=== PATIENT | female | born 1960 | race African-American/Black ===

== ENCOUNTER 2023-03-30 10:08 | Outpatient (CLI) | payer MEDICARE, SELFPAY ==
--- NOTE | ~2023-03-30 | US_ITS ---
EXAMINATION: US pelvic complete w TV DATE: 03/30/2023 11:24 INDICATION: Benign neoplasm of connective tissue. Comparison:No prior studies for comparison. TECHNIQUE: Multiple transabdominal and endovaginal sonographic images of the pelvis performed. FINDINGS: The uterus measures 8.4 x 3.9 x 5.2 cm. There are uterine calcifications, possibly due to u nderlying fibroid changes.. The endometrial complex measures 8 mm. The ovaries are not visualized. There is no free fluid in the pelvis. There are no abnormal masses seen on either side. IMPRESSION: 1. Thickened endomtrial complex. The differential diagnosis includes endometrial hyperplasia, polyp a nd carcinoma. Biopsy is recommended.. Reviewed, dictated and finalized at location B. IMPRESSION: 1. Thickened endomtrial complex. The differential diagnosis includes endometria l hyperplasia, polyp and carcinoma. Biopsy is recommended..
== END 2023-03-30 10:09 | disposition home or self-care (01) ==
PROVIDERS: Visit Provider Registered Nurse
DX: D21.9 Benign neoplasm of connective and other soft tissue, unspecified (principal)
CPT/HCPCS: 76830; 76856

== ENCOUNTER 2023-05-20 00:42 | Day surgery (SDC) | payer MEDICARE, SELFPAY ==
--- NOTE | 2023-05-13 15:40 | SUR.PREOP ---
Report to the Outpatient Waiting Room, entrance under the green pavilion located off [facility], at time 0730 on date 05/20/23. Planned Procedure Time: 0930. Time changes happen often and if your time is changed the preop area will call you the afternoon before. - You and your visitor will be asked to self-screen and do not enter if you have any COVID symptoms. - A mask is optional within the hospital at this time. Patients may have clear liquids (water, carbonated beverages, clear teas, apple juice) until 3 hours prior to surgery with a maximum of 20 ounces. - NO CLEAR LIQUIDS AFTER 0630 - No food from midnight until time of surgery - Infants may have breast milk until 4 hours before surgery, infant formula 6 hours prior to surgery. - Children will be allowed to drink immediately following surgery. If applicable, please bring a bottle or sippy cup to assist with drinking. Juice, water, soda, and popsicles are readily available. For infants on formula, please bring formula the day of surgery. Pacifiers are allowed. Take the following medications with a SIP of water the morning of surgery: LABETALOL, LETROZOLE, PREDNISONE, TACROLIMUS DO NOT STOP ANY OF YOUR OTHER PRESCRIPTION MEDICATIONS PRIOR TO SURGERY ?EXCEPT THE FOLLOWING Medications to discontinue per physician STOP VITAMINS 05/17/23, INSTRUCTED TO CALL DR GIL IN REGARDS TO STOPPING ASPIRIN Please no make-up, nail estonian, hairspray, perfume, deodorant, or body powder the day of surgery. No jewelry (including any body piercings) or valuables the day of surgery, leave them at home. Please take a shower or bath the night before, or the morning of, surgery with an antibacterial soap. Wear comfortable, loose fitting clothing. Children are encouraged to wear pajamas. - Jewelry must be removed prior to entering the operating room. Rings and piercings that are not removed may be cut off. - The hospital will not accept responsibility for valuables. - Please leave all valuables, including medications, at home the day of surgery. If you are going home after surgery, a licensed hook up driver must drive you home. - NO public transportation without another adult if you receive anesthesia. - We recommend that an adult stay with you for 24 hours following discharge. - We also recommend that you do not drive, make important decision, drink alcoholic beverages, or take any drugs that were not prescribed by your health care provider for at least 24 hours after your discharge time. For Pediatric surgeries, we recommend two adults accompany the child home. Follow any additional instructions given to you from your surgeon. If you or anyone in your household have experienced Covid symptoms in the past week, please notify your surgeon or the nurse liaison at the phone number below for possible testing. Telephone instructions given to SADAF HILARIO and asked if any additional questions and then verbalized understanding. INSTRUCTED PATIENT TO FAX BMP RESULTS TO [phone] Patient advised to call surgeon office or pre surgery nurse liaison [phone] if any additional questions.
[2023-05-13 16:01] VITALS: BMI 38.4
--- NOTE | 2023-05-19 12:43 | PM.IMHP ---
H&P: HPI History of Present Illness Date/Time: 05/19/23 12:43 Chief Complaint: Abnormal thickened endometrial stripe on a postmenopausal patient Narrative: Patient is a 62-year-old female with history of breast cancer on letrozole with abnormal ultrasound finding of thickened endometrial stripe of 8 mm. It was recommended for endometrial sampling to rule out abnormal cells and she opted for D and C hysteroscopy and removal of any abnormal lesion if present. Review of Systems Review of Systems: All systems reviewed & are unremarkable except as noted in HPI and below Cardiovascular: Cardiovascular: Reports no additional cardiovascular complaints, Denies chest pain and Denies dyspnea Respiratory: Respiratory: Reports no additional respiratory complaints and Denies dyspnea Gastrointestinal: Gastrointestinal: Reports abdominal pain, Denies change in bowel habits, Denies diarrhea, Denies nausea and Denies vomiting Genitourinary: Genitourinary: Reports pelvic pain Musculoskeletal: Musculoskeletal: Reports back pain Integumentary/Breasts: Skin/Breast: Reports system reviewed and no additional complaints, except as docu Neurologic: Reports system reviewed and no additional complaints, except as documented PMFSH Past Medical History Medical History delivery delivered Hyperlipidemia with target LDL less than 100 Hypertension Obesity Type 2 diabetes mellitus with hyperglycemia, with long-term current use of insulin Uterine fibroid Surgical History Surgical History H/O breast surgery H/O tubal ligation Kidney transplant recipient S/P dilation and curettage Family History Family History Father Family history of arthritis Family history of diabetes mellitus in first degree relative Mother Family history of heart disease in male family member before age 55 Social History Social History Smoking status: Never smoker Alcohol intake: current Substance use: never Lack of Transportation: YES Lack of Food: Never True Current Housing: Decline to Answer Concerned About Future Housing: Decline to Answer Difficulty Paying Gas/Electric Bills: Decline to Answer Difficulty Paying for Meds: Decline to Answer Currently Unemployed: Decline to Answer Education: Decline to Answer Difficulty w/ Childcare or Family Care: Decline to Answer Living arrangements: alone Gender identity (if verbalized by the patient): Female Sexual Orientation (if Verbalized by the Patient): Straight or Heterosexual Spiritual care concerns: No Meds Home Medications and Allergies Home Medications Medication Instructions Recorded Confirmed Type aspirin 81 mg tablet,delayed 81 mg PO DAILY 10/10/19 05/20/23 History release (Adult Aspirin Regimen) prednisone 5 mg tablet 5 mg PO DAILY 10/10/19 05/20/23 History cholecalciferol (vitamin D3) 50 2,000 unit PO DAILY 04/18/20 05/20/23 History mcg (2,000 unit) capsule pen needle, diabetic 31 gauge x #400 ea 04/18/20 05/04/23 Rx 3/16 (BD Ultra-Fine Mini Pen Needle) tacrolimus 1 mg tablet,extended 4 mg PO QAM 04/18/20 05/20/23 History release 24 hr ([facility]us XR) blood-glucose meter (OneTouch #1 ea 07/22/20 05/04/23 Rx Ultra2 Meter kit) labetalol 200 mg tablet 200 mg PO Q12H 10/15/20 05/20/23 History blood pressure kit-extra large #1 ea 01/21/21 05/04/23 Rx multivitamin 1 tablet PO DAILY 05/18/21 05/20/23 History losartan 50 mg-hydrochlorothiazide 1 tablet PO DAILY 06/17/21 05/20/23 History 12.5 mg tablet blood sugar diagnostic #400 ea 08/13/21 05/04/23 Rx lancets 33 gauge (OneTouch Delica #400 ea 08/13/21 05/04/23 Rx Lancets) insulin glargine 100 unit/mL (3 45 unit (0.45 mL) subcut DAILY 90 08/31/21 05/20/23 Rx mL) subcutaneous
[2023-05-20 08:54] VITALS: BP 182/69; PULSE 77; RESP 20; TEMP 36.4; O2SAT 98
--- NOTE | 2023-05-20 09:11 | WPDANESEPPF ---
Anes - Initial Pre Proc Eval Procedure: Operation Date: 05/20/23 10:30 Proposed Procedures p Hysteroscopy Dilation and Curettage, Removal of any Endometrial Lesion, If necessary - Robb Cantu MD Date/Time: 05/20/23 09:11 Surgeon: Robb Cantu MD Pre Op Diagnosis: Abnormal Thickened Endometrium Patient Data Age: 62 Gender: F Height: 1.55 m Weight: 92.2 kg Allergies Allergy/AdvReac Type Severity Reaction Status Date / Time No Known Allergies Allergy Verified 05/20/23 08:57 Home Medications Medication Instructions Recorded Confirmed Type aspirin 81 mg tablet,delayed 81 mg PO DAILY 10/10/19 05/20/23 History release (Adult Aspirin Regimen) prednisone 5 mg tablet 5 mg PO DAILY 10/10/19 05/20/23 History cholecalciferol (vitamin D3) 50 2,000 unit PO DAILY 04/18/20 05/20/23 History mcg (2,000 unit) capsule pen needle, diabetic 31 gauge x #400 ea 04/18/20 05/04/23 Rx 3/16 (BD Ultra-Fine Mini Pen Needle) tacrolimus 1 mg tablet,extended 4 mg PO QAM 04/18/20 05/20/23 History release 24 hr ([facility]varsus XR) blood-glucose meter (OneTouch #1 ea 07/22/20 05/04/23 Rx Ultra2 Meter kit) labetalol 200 mg tablet 200 mg PO Q12H 10/15/20 05/20/23 History blood pressure kit-extra large #1 ea 01/21/21 05/04/23 Rx multivitamin 1 tablet PO DAILY 05/18/21 05/20/23 History losartan 50 mg-hydrochlorothiazide 1 tablet PO DAILY 06/17/21 05/20/23 History 12.5 mg tablet blood sugar diagnostic #400 ea 08/13/21 05/04/23 Rx lancets 33 gauge (OneTouch Delica #400 ea 08/13/21 05/04/23 Rx Lancets) insulin glargine 100 unit/mL (3 45 unit (0.45 mL) subcut DAILY 90 08/31/21 05/20/23 Rx mL) [facility] KwikPen U-100 Insulin) insulin lispro 100 unit/mL 15 unit subcut TID 02/11/22 05/20/23 History subcutaneous pen (Humalog KwikPen (U-100) Insulin) rosuvastatin 40 mg tablet 40 mg PO DAILY 02/11/22 05/20/23 History blood-glucose transmitter (Dexcom #1 ea 01/11/23 05/04/23 Rx G6 Transmitter device) blood-glucose sensor (Dexcom G6 #12 ea 02/22/23 05/04/23 Rx Sensor device) letrozole 2.5 mg tablet 2.5 mg PO DAILY 02/28/23 05/20/23 History spironolactone 25 mg tablet 25 mg PO DAILY 02/28/23 05/20/23 History Patient hx anesthesia problems: none Family hx anesthesia problems: none Results Review: All pre-operative results and documents have been reviewed as part of the pre-operative evaluation. [facility] Past Medical History Medical History delivery delivered Hyperlipidemia with target LDL less than 100 Hypertension Obesity Type 2 diabetes mellitus with hyperglycemia, with long-term current use of insulin Uterine fibroid Surgical History Surgical History H/O breast surgery H/O tubal ligation Kidney transplant recipient S/P dilation and curettage Family History Family History Father Family history of arthritis Family history of diabetes mellitus in first degree relative Mother Family history of heart disease in male family member before age 55 Social History Social History Smoking status: Never smoker Alcohol intake: current Substance use: never Lack of Transportation: YES Lack of Food: Never True Current Housing: Decline to Answer Concerned About Future Housing: Decline to Answer Difficulty Paying Gas/Electric Bills: Decline to Answer Difficulty Paying for Meds: Decline to Answer Currently Unemployed: Decline to Answer Education: Decline to Answer Difficulty w/ Childcare or Family Care: Decline to Answer Living arrangements: alone Gender identity (if verbalized by the patient): Female Sexual Orientation (if Verbalized by the Patient): Straight or Heterosexual Spiritual care concerns: No Anes
--- NOTE | 2023-05-20 09:17 | WPDHPUPDATE1 ---
History and Physical Update Update Date/Time: 05/20/23 09:17 History and Physical has been reviewed, including an updated exam of the patient. There are NO changes in the patient's condition. Risks, benefits, and alternatives have been discussed and questions answered. Patient agrees to proceed with procedure.
[2023-05-20] MEDS: ACETAMINOPHEN 500 MG TABLET 1000 MG PO (09:27)
[2023-05-20] MEDS: LACTATED RINGERS 1,000 ML 30 ML IV CONT (09:30)
[2023-05-20 09:38] LABS: Glucose Point of Care 273 mg/dl (65-105)
[2023-05-20] MEDS: ceFAZolin 2 GM/D5W 50 ML 2 GM/50 ML BAG IVPB (09:50)
[2023-05-20] MEDS: LIDOCAINE HCL 1% LOCAL INJ 20 ML VIAL 10 ML INFILTRATE (10:05)
--- NOTE | 2023-05-20 10:08 | P.OP_ITS ---
Procedure Note - Detailed Date of Procedure 05/20/23 Pre-op Diagnosis Abnormal Thickened Endometrium Post-op Diagnosis Other (Endometrial lesion) Procedure Performed D and C hysteroscopy and removal of endometrial lesion Surgeon Robb Cantu MD Anesthesia MAC and Local Indications Thickened endometrial stripe Findings Lower endometrial lesion consistent with polyp the remaining of the cavity mostly atrophic appearing. Description of Procedure After form consent was obtained patient was taken to the operating room and adequate IV sedation was administered. She was placed in high lithotomy position and prepped and draped in sterile fashion. Attention was turned to the vagina. Speculum inserted. Single-tooth tenaculum placed on anterior lip of the cervix. 1% lidocaine was injected at the cervical vaginal interface at 2, 5, 8 and 10 position. The hysteroscope was inserted and using hydrodilation the cervical and endometrial cavity were entered. There was a growth at lower uterus posterior extending into upper cervix. The rest of the cavity appeared atrophic. The aveta instrument was used and removed the growth completely. A curettage was then performed and there was minimal tissue obtained. The single- tooth tenaculum was removed. Hemostasis was noted. The speculum was removed. The patient tolerated procedure well. Estimated Blood Loss 5 Drains No Packing No Pathology Yes ( Scant endometrial curettings and shavings) Complications No immediate complications Condition Stable Disposition Same day [facility] Billing Surgery - Charge Forward: Surgery Billing
--- NOTE | 2023-05-20 10:09 | SUR.PREOP ---
0935-Dr. Beach aware of POC glucose of 273-no tx ordered, will proceed.
[2023-05-20 10:13] VITALS: BP 112/51; PULSE 71; RESP 16; O2SAT 94
[2023-05-20 10:20] LABS: Glucose Point of Care 266 mg/dl (65-105)
[2023-05-20 10:40] VITALS: BP 150/59; PULSE 73; RESP 16; O2SAT 95
[2023-05-20] MEDS: oxyCODONE HCL (*CRX) 5 MG TAB IR PO (10:56)
[2023-05-20 11:10] VITALS: BP 165/63; PULSE 66; RESP 16
== END 2023-05-20 11:36 | disposition home or self-care (01) ==
PROVIDERS: Visit Provider Obstetrics & Gynecology
PROC: 0U5B8ZZ Destruction of Endometrium, Via Natural or Artificial Opening Endoscopic (ICD-10-PCS; CPT 58563; principal; 2023-05-20 10:30)
DX: N85.8 Other specified noninflammatory disorders of uterus (principal); E78.5 Hyperlipidemia, unspecified; I10 Essential (primary) hypertension; E11.9 Type 2 diabetes mellitus without complications; E66.9 Obesity, unspecified; Z68.37 Body mass index [BMI] 37.0-37.9, adult; Z94.0 Kidney transplant status; Z79.82 Long term (current) use of aspirin; Z79.4 Long term (current) use of insulin; Z79.811 Long term (current) use of aromatase inhibitors
CPT/HCPCS: 58558; 82948; 88305; A9270; J0690; J2250; J2704; J3010; J7120